=== PATIENT | male | born 1940 | race Caucasian/White ===

== ENCOUNTER 2016-11-11 17:51 | Emergency (ER) | payer OTHER ==
[~2016-11-11] VITALS: Ht 170.2 cm; Wt 65.8 kg
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
--- NOTE | 2016-11-11 20:39 | CT SCAN REPORT ---
EXAMINATION: CT HEAD WITHOUT CONTRAST CT CERVICAL SPINE WITHOUT CONTRAST CLINICAL INFORMATION: Head trauma. Headache. Neck pain. COMPARISON: None. TECHNIQUE: Contiguous axial imaging was performed from the skullbase to vertex without intravenous administration of contrast. Multidetector helical imaging was performed through the cervical spine. DLP: 933.94 mGy-cm. FINDINGS: HEAD: There is no evidence of acute intracranial hemorrhage or territorial infarction. No abnormal mass effect or midline shift is seen. Thomason to white matter differentiation is well preserved. No extra-axial fluid collections are identified. The ventricles are normal in size. Encephalomalacia is noted in the anteroinferior right frontal lobe. The osseous structures and soft tissues are normal. The visualized portions of the paranasal sinuses are well aerated. There is a mild amount of fluid in the dependent right mastoid air cells. CERVICAL SPINE: No acute fracture or dislocation is identified in the cervical spine. There is moderate mid to lower cervical spondylosis with disc-osteophyte complexes and facet arthropathy. The atlantoaxial articulation is normally maintained. The paraspinal soft tissues are normal. The lung apices are clear. IMPRESSION: 1. No acute intracranial pathology. 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 2. No evidence of acute cervical spine traumatic injury.
[2016-11-11 21:00] VITALS: BP 113/66
== END 2016-11-11 21:09 ==
LOC: ERH 17:51
DX: S16.1XXA Strain of muscle, fascia and tendon at neck level, initial encounter (principal); S09.90XA Unspecified injury of head, initial encounter; V49.40XA Driver injured in collision with unspecified motor vehicles in traffic accident, initial encounter; Y92.411 Interstate highway as the place of occurrence of the external cause